=== PATIENT | female | born 1990 | race Two or more races ===

== ENCOUNTER 2018-01-05 14:56 | Emergency (ER) | payer OTHER ==
[2018-01-05 15:27] VITALS: BP 99/68
[2018-01-05] MEDS ORDERED: Naproxen TAB* 250 MG PO ONE (16:18)
--- NOTE | 2018-01-05 16:20 | UC ---
Back Pain HPI - HPI Summary HPI Summary: 27 year old female with no significant pmhx here with buttocks pain. Reports she fell about 6 weeks ago, landed on her buttocks. At the time, she was so she didnt come to get XR. She denies any numbness, tingling or motor deficit. No other complaints. - History of Current Complaint Chief Complaint: UCBackPain Stated Complaint: BACK PAIN Time Seen by Provider: 01/05/18 16:04 Hx Last Menstrual Period: September 2017 ?: No Onset/Duration: Gradual Onset Timing: Constant Severity Initially: Mild Severity Currently: Mild Pain Intensity: 2 Aggravating Factor(s): Other - sitting Alleviating Factor(s): Rest - Allergies/Home Medications Allergies/Adverse Reactions: Allergies Allergy/AdvReac Type Severity Reaction Status Date / Time Penicillins Allergy Unknown Verified 01/05/18 15:28 Reaction Details PMH/Surg Hx/FS Hx/Imm Hx Previously Healthy: No - Surgical History Surgical History: None - Social History Alcohol Use: None Substance Use Type: None Smoking Status (MU): Never Smoked Tobacco Review of Systems Constitutional: Negative Skin: Negative Eyes: Negative ENT: Negative Respiratory: Negative Cardiovascular: Negative Gastrointestinal: Negative Genitourinary: Negative Motor: Negative Neurovascular: Negative Musculoskeletal: Negative Neurological: Negative Psychological: Negative All Other Systems Reviewed And Are Negative: Yes Physical Exam Triage Information Reviewed: Yes Appearance: Well-Appearing, No Pain Distress Vital Signs: Initial Vital Signs Temp 36.6 C 01/05/18 15:23 Pulse 90 01/05/18 15:23 Resp 12 01/05/18 15:23 BP 99/68 01/05/18 15:23 Pulse Ox 100 01/05/18 15:23 Eye Exam: Normal ENT Exam: Normal Dental Exam: Normal Neck exam: Normal Neck: Positive: 1 Respiratory Exam: Normal Cardiovascular Exam: Normal Abdominal Exam: Normal Musculoskeletal Exam: Normal Musculoskeletal: Positive: Other: - No C/T/L spine tenderness Neurological Exam: Normal Neurological: Positive: Other: - 5/5 strength in all extremities SILT in s/s/sp/ dp/ta Psychological Exam: Normal Skin Exam: Normal Back Pain Course/Dx - Course Course Of Treatment: Discussed with patient that low susp for fracture as pain only when she sits. Suggested to follow up with PMD/sent referral to PMD network so patient can get MRI as outpatient. - Differential Dx/Diagnosis Differential Diagnosis/HQI/PQRI: Herniated Disc, Strain, Sprain Provider Diagnoses: Lower back pain Discharge - Sign-Out/Discharge Documenting (check all that apply): Discharge/Admit/Transfer - Discharge Plan Condition: Good Disposition: HOME Prescriptions: Naproxen TAB* [Naprosyn 250 mg TAB*] 250 mg PO BID #20 tab Patient Education Materials: Low Back Strain (ED) Referrals: No Primary Care Phys,NOPCP [Primary Care Provider] - [facility] [Outside] - Billing Disposition and Condition Condition: GOOD Disposition: Home
== END 2018-01-05 16:30 | disposition home or self-care (01) ==
LOC: UCEAST 14:56
DX: M54.5 Low back pain (principal); Z88.0 Allergy status to penicillin
CPT/HCPCS: 99212; A9270-GY; G0463